=== PATIENT | female | born 1990 | race Caucasian/White ===

== ENCOUNTER 2016-08-16 10:15 | Emergency (ER) | payer SELFPAY ==
[2016-08-16 10:26] VITALS: BP 127/72; BMI 21.7
--- NOTE | 2016-08-16 10:29 | DR.GENAD ---
HPI - PCP Primary Care Physician: DR ROSE IN [place] - Complaint/Symptoms Chief Complaint Doctors Comments: Patient has Hx of anxiety requiring Xanax in past. Chief Complaint:: PATIENT STATED SHE HAD A ASTHMA ATTACK. SHE STATED SHE HAS A HX OF THEM AND SHE TOOK HER INHALIER WHILE SHE WAS WORK. SHE STATED SHE IS FINE NOW. - Nurses notes reviewed Nurses Notes Review: Yes - Source History Provided: Patient, EMS - Mode of Arrival Mode of Arrival: EMS - Timing Onset of Chief Complaint: 08/16/16 Came on: Suddenly - Duration Duration: Intermittent Duration: Hours - Location Location: lungs - Severity Severity: Mild, Moderate - Modifying Factors Improves:: inhaler - Associated Signs and Symptoms Associated Signs and Symptoms: dyspnea PMH - PMH Past Medical History: Yes Past Medical History: Asthma Past Medical History Comment: anxiety attacks Past Surgical History: No - Family History History of Family Medical Conditions: No - Social History Does patient currently use any type of tobacco product: No Have you used tobacco products in the last 12 months: No Type of Tobacco Use: None Does any household member use tobacco: No Alcohol Use: Occasionally Do you use any recreational Drugs:: No Lives With: Family Lives Where: Home - infectious screening In the last 2 months have you had wt loss of >10#?: NO Have you had fever, night sweats or hemotysis?: No Have you traveled outside the country in the last 6 months?: No Isolation: Standard ROS - Review of Systems Constitutional: No Symptoms Reported Eyes: No Symptoms Reported ENTM: No Symptoms Reported Respiratoy: Wheezing Cardiovascular: No Symptoms Reported Gastrointestinal/Abdominal: No Symptoms Reported Genitourinary: No Symptoms Reported Neurological: No Symptoms Reported Musculoskeletal: No Symptoms Reported Integumentary: No Symptoms Reported Hematologic/Lymphatic: No Symptoms Reported Endocrine: No Symptoms Reported Psychiatric: Anxiety All Other Systems: Reviewed and Negative PE - Vital Signs Vitals: Temperature 97.8 F Pulse Rate 105 Respiratory Rate 16 Blood Pressure 127/72 O2 Sat by Pulse Oximetry 100 - General Limitations: No Limitations General Appearance: Alert, In No Apparent Distress - Head Head Exam: Normal Inspection - Eyes Eye exam: EOMI. negative: Scleral Icterus, Conjunctival Injection - ENT ENT Exam: Normal Exam, Normal Oropharynx External Ear Exam: Normal External Inspection Nose Exam: Normal Nose Exam Mouth Exam: Normal Inspection Throat Exam: Normal Inspection - Neck Neck Exam: Normal Inspection, Full ROM, Trachea Midline - Chest Chest Inspection: Normal Inspection - Respiratory Respiratory Exam: Normal Lung Sounds Bilat. negative: Accessory Muscle Use, Respiratory Distress Respiratory Exam: Bilateral Clear to Auscultation - Cardiovascular Cardiovascular Exam: Regular Rate - Abdominal Exam Abdominal Exam: Normal Inspection, Normal Bowel Sounds, Soft - Extremities Extremities Exam: Normal Inspection, Full ROM - Back Back Exam: Normal Inspection, Full ROM - Neurologic Neurological Exam: Alert, Oriented X3, CN II-XII Intact - Psychiatric Psychiatric Exam: Anxious - Skin Skin Exam: Intact, Normal Color Course - Treatment Treatment: symptoms resolved without treatment. - Diagnosis Discharge Problem: Anxiety - Discharge Plan Condition: Stable Prescriptions: Diphenhydramine HCl [Benadryl Cap/Tab 25 mg] 25 mg PO Q8H PRN #12 tab PRN Reason: Allergy/Itching - Follow ups/Referrals Follow ups/Referrals: [facility],None [Primary Care Provider] - 3 days - Instructions
[2016-08-16] MEDS ORDERED: BENADRYL CAP/TAB 25 MG PO ONE ×2 (10:38→10:42)
== END 2016-08-16 10:49 | disposition home or self-care (01) ==
LOC: ER 10:15
DX: F41.8 Other specified anxiety disorders (principal)
CPT/HCPCS: 99282

== ENCOUNTER 2016-09-23 19:44 | Emergency (ER) | payer SELFPAY ==
[2016-09-23 19:56] VITALS: BP 98/68; BMI 21.7
== END 2016-09-23 21:35 | disposition left against medical advice (07) ==
LOC: ER 19:44
DX: H57.12 Ocular pain, left eye (principal)
CPT/HCPCS: 99281